=== PATIENT | female | born 2000 | race Hispanic/Latino ===

== ENCOUNTER 2021-05-19 22:25 | Day surgery (SDC) | payer OTHER ==
[2021-05-19 22:52] VITALS: BMI 37.1
[2021-05-19] MEDS ORDERED: hydrALAZINE 20 MG/ML VIAL SLOW IVP PRN (23:37)
== END 2021-05-19 23:30 | disposition home or self-care (01) ==
LOC: CSHLD/OP 22:25
PROVIDERS: ATTEND Obstetrics & Gynecology
DX: O99.891 Other specified diseases and conditions complicating pregnancy (principal); R10.2 Pelvic and perineal pain; Z3A.35 35 weeks gestation of pregnancy
CPT/HCPCS: 99282

== ENCOUNTER 2021-05-28 14:14 | Day surgery (SDC) | payer OTHER ==
[2021-05-28] MEDS ORDERED: hydrALAZINE 20 MG/ML VIAL SLOW IVP PRN (16:29)
== END 2021-05-28 16:30 | disposition home or self-care (01) ==
LOC: CSHLD/OP 14:14
PROVIDERS: ATTEND Obstetrics & Gynecology
DX: O26.893 Other specified pregnancy related conditions, third trimester (principal); R10.2 Pelvic and perineal pain; Z3A.37 37 weeks gestation of pregnancy
CPT/HCPCS: 99283

== ENCOUNTER 2021-05-28 22:13 | Day surgery (SDC) | payer OTHER ==
[~2021-05-28 22:13] MED LIST: Acetaminophen 500 MG TAB PO SCH
[2021-05-28 22:31] VITALS: BMI 38.0
[2021-05-28] MEDS ORDERED: hydrALAZINE 20 MG/ML VIAL SLOW IVP PRN (23:03)
[2021-05-29] MEDS ORDERED: Acetaminophen 500 MG TAB PO SCH (00:15)
== END 2021-05-28 23:40 | disposition home or self-care (01) ==
LOC: CSHLD/OP 22:13
PROVIDERS: ATTEND Obstetrics & Gynecology
DX: O47.1 False labor at or after 37 completed weeks of gestation (principal); Z3A.37 37 weeks gestation of pregnancy
CPT/HCPCS: 99283

== ENCOUNTER 2021-06-05 22:36 | Day surgery (SDC) | payer OTHER ==
[2021-06-06] MEDS ORDERED: hydrALAZINE 20 MG/ML VIAL SLOW IVP PRN
== END 2021-06-06 02:49 | disposition home or self-care (01) ==
LOC: CSHLD/OP 22:36
PROVIDERS: ATTEND Obstetrics & Gynecology
DX: O47.1 False labor at or after 37 completed weeks of gestation (principal); O99.820 Streptococcus B carrier state complicating pregnancy; O36.8130 Decreased fetal movements, third trimester, not applicable or unspecified; Z3A.38 38 weeks gestation of pregnancy
CPT/HCPCS: 76819; 99283

== ENCOUNTER 2021-06-09 14:34 | Inpatient (IN) | payer OTHER ==
[2021-06-09 15:28] VITALS: BMI 37.5
[2021-06-09] MEDS ORDERED: hydrALAZINE 20 MG/ML VIAL SLOW IVP PRN (15:42)
[2021-06-09] MEDS ORDERED: Ondansetron PF 4 MG/2 ML Vial IVP PRN ×2 (15:42→21:56)
[2021-06-09] MEDS ORDERED: Carboprost 250 MCG/ML AMP IM PRN (15:42)
[2021-06-09] MEDS ORDERED: Methylergonovine 0.2 MG/ML VIAL IM PRN (15:42)
[2021-06-09] MEDS ORDERED: Diphenoxylate HCl/Atropine Tablet PO PRN (15:42)
[2021-06-09] MEDS ORDERED: Misoprostol 200 MCG TAB PR PRN (15:42)
[2021-06-09] MEDS ORDERED: Promethazine HCl 25 MG/ML VIAL IM PRN ×2 (15:42→21:56)
[2021-06-09] MEDS ORDERED: Lidocaine 1% (PF) 30 ML VIAL SC PRN (15:42)
[2021-06-09] MEDS ORDERED: Butorphanol Tartrate 1 MG/ML VIAL SLOW IVP PRN (15:42)
[2021-06-09] MEDS ORDERED: Ibuprofen 800 MG TAB PO PRN (15:42)
[2021-06-09] MEDS ORDERED: Penicillin G Potassium 5 MILL.UNITS in Sodium Chloride 0.9% 100 ML IVPB SCH (15:45)
[2021-06-09] MEDS ORDERED: Lactated Ringer's 1,000 ML IV SCH (15:45)
[2021-06-09] MEDS ORDERED: NS w/ Oxytocin 30 units 500 ML IV SCH ×2 (15:45)
[2021-06-09 16:08] LABS: Mean Corpuscular HGB CONC 32.7 g/dL (32.0-36.0); Mean Corpuscular Hemoglobin 29.7 pg (27.0-33.0); Mean Corpuscular Volume 90.8 fl (81.6-98.3); Platelet Count 223 10x3/uL (150-450); RBC Distribution Width 13.2 % (11.5-14.5); White Blood Cell (WBC) Count 6.7 10x3/uL (3.5-10.5)
[2021-06-09 16:37] LABS: Hep B Surf Ag Non-Reactive S/CO (NonReactive)
[2021-06-09 16:38] LABS: Syphilis Antibody Nonreactive (Nonreactive); Syphilis Antibody Index 0.36 S/CO (<1.00 Non-Reactive)
[2021-06-09 16:43] LABS: HBSAg Index 0.16 S/CO (0-0.99)
[2021-06-09 18:52] LABS: SARS-CoV-2 NAA Rapid Test Not Detected (NotDetected)
[2021-06-09] MEDS: Penicillin G 2.5 MILL.units 2.5 MILL.UNITS in Premix Bag 1 BAG IVPB SCH (20:28)
[2021-06-09] MEDS ORDERED: Fentanyl 2 mcg/Bup 0.1% Cadd 100 ML ONE (21:32)
[2021-06-09] MEDS ORDERED: Naloxone HCl 0.4 mg/ml Vial IVP PRN ×2 (21:56)
[2021-06-09] MEDS ORDERED: diphenhydrAMINE 50 MG/ML VIAL IVP PRN (21:56)
[2021-06-09] MEDS ORDERED: Hydrocerin (Eucerin) Cream 120 gm Jar TOP PRN (21:56)
[2021-06-09] MEDS ORDERED: Acetaminophen 325 MG TAB PO PRN (21:56)
[2021-06-09] MEDS ORDERED: ePHEDrine Sulfate 50 MG/10 ML VIAL SLOW IVP PRN (21:56)
[2021-06-09] MEDS ORDERED: Communication Order-Pharmacy FS SCH (22:00)
[2021-06-09] MEDS ORDERED: Lactated Ringer's 500 ML IV PRN (22:00)
[2021-06-09] MEDS ORDERED: Fentanyl 2 mcg/Bupivacaine 0.1% Cassette 100 ML EPIDURAL SCH (22:00)
[2021-06-09] MEDS ORDERED: Ondansetron PF 4 MG/2 ML Vial ONE (22:58)
[2021-06-09 23:17] LABS: HIV (1/2) Antibody/Antigen Non-Reactive (NonReactive); HIV 1/2 INDEX 0.09 S/CO (<1.00)
[2021-06-09] MEDS ORDERED: Fentanyl 100 MCG/2 ML VIAL ONE (23:47)
[2021-06-10] MEDS: Penicillin G 2.5 MILL.units 2.5 MILL.UNITS in Premix Bag 1 BAG IVPB SCH ×2 (00:05→05:33)
[2021-06-10] MEDS ORDERED: Misoprostol 200 MCG TAB ONE (01:34)
[2021-06-10] MEDS ORDERED: Misoprostol 200 MCG TAB VAG PRN (05:04)
[2021-06-10] MEDS ORDERED: Boostrix 0.5 ML (Tdap) VIAL IM ONE (05:04)
[2021-06-10] MEDS ORDERED: Benzocaine-Menthol 82.5 ML CAN TOP PRN (05:04)
[2021-06-10] MEDS ORDERED: hydrALAZINE 20 MG/ML VIAL SLOW IVP PRN (05:04)
[2021-06-10] MEDS ORDERED: Measles/Mumps/Rubella 10 MCG/0.5 ML VIAL SC ONE (05:04)
[2021-06-10] MEDS ORDERED: Bisacodyl 10 MG SUPP PR PRN (05:04)
[2021-06-10] MEDS ORDERED: HYDROcodone/Acetaminophen 5/325 mg Tablet PO PRN ×2 (05:04)
[2021-06-10] MEDS ORDERED: Ondansetron PF 4 MG/2 ML Vial IVP PRN (05:04)
[2021-06-10] MEDS ORDERED: Milk Of Magnesia 30 ML UDCUP PO PRN (05:04)
[2021-06-10] MEDS ORDERED: Methylergonovine 0.2 MG/ML VIAL IM PRN (05:04)
[2021-06-10] MEDS ORDERED: NS w/ Oxytocin 30 units 500 ML IV SCH (05:04)
[2021-06-10] MEDS: Ibuprofen 800 MG TAB PO SCH ×3 (06:23→21:04)
[2021-06-10] MEDS: Ferrous Sulfate 325 MG TAB PO SCH ×2 (08:18→17:59)
[2021-06-10] MEDS: Docusate Calcium (SURFAK) 240 MG CAP PO SCH ×2 (08:20→21:04)
[2021-06-10 23:32] VITALS: BP 114/78; TEMP 98.7
[2021-06-11] MEDS: Ibuprofen 800 MG TAB PO SCH (05:57)
[2021-06-11] MEDS: Ferrous Sulfate 325 MG TAB PO SCH (08:57)
[2021-06-11] MEDS: Docusate Calcium (SURFAK) 240 MG CAP PO SCH (08:57)
== END 2021-06-11 14:25 | disposition home or self-care (01) | DRG 806 ==
LOC: CSHLD 14:34 → CSHPED 06-10 05:20
PROVIDERS: ADMIT Obstetrics & Gynecology; ATTEND Obstetrics & Gynecology
PROC: 10E0XZZ Delivery of Products of Conception, External Approach (ICD-10-PCS; principal; 2021-06-10)
DX: O41.03X0 Oligohydramnios, third trimester, not applicable or unspecified (principal); O98.82 Other maternal infectious and parasitic diseases complicating childbirth; Z37.0 Single live birth; Z20.822 Contact with and (suspected) exposure to COVID-19; Z3A.38 38 weeks gestation of pregnancy; B95.1 Streptococcus, group B, as the cause of diseases classified elsewhere; O99.214 Obesity complicating childbirth; E66.01 Morbid (severe) obesity due to excess calories; O76 Abnormality in fetal heart rate and rhythm complicating labor and delivery; O69.1XX0 Labor and delivery complicated by cord around neck, with compression, not applicable or unspecified
CPT/HCPCS: 36415; 85027; 86780; 86850; 86900; 86901; 87340; 87389; J2405; J2540; J2590; J3010; J3490; U0002